=== PATIENT | female | born 1970 | race Caucasian/White ===

== ENCOUNTER 2019-09-02 15:32 | Emergency (ER) | payer OTHER ==
[~2019-09-02] VITALS: Ht 154.9 cm; Wt 73.9 kg
[~2019-09-02 15:32] MED LIST: DOXYCYCLINE HY100 MG PO
[2019-09-02] MEDS ORDERED: KETOROLAC TROMETHAMINE 60 MG/2 ML VIAL ONE (16:28)
[2019-09-02] MEDS ORDERED: KETOROLAC TROMETHAMINE 60 MG/2 ML VIAL IM ONE (16:45)
--- NOTE | 2019-09-02 17:09 | Diagnostic Imaging Report ---
EXAMINATION: SHOULDER LEFT COMPLETE INDICATION: Trauma COMPARISON: None FINDINGS: Internal and external rotation images of the left shoulder demonstrate no acute fracture or dislocation. Alignment is anatomic. Soft tissues appear unremarkable. Partially visualized left lung appears clear. IMPRESSION: No acute osseous injury of the left shoulder. Signed by: Cherelle Wilkinson MD on 09/02/2019 5:06 PM
--- NOTE | 2019-09-02 17:09 | Diagnostic Imaging Report ---
EXAMINATION: RIBS UNILAT W/CXR INDICATION: Left rib pain COMPARISON: Chest are graft 03/10/2019 FINDINGS: LINES/TUBES:None LUNGS:The lungs are well-inflated. No focal consolidation or pulmonary edema. PLEURA:No pleural effusion or pneumothorax. MEDIASTINUM:The cardiomediastinal silhouette appears normal in size and shape. BONES/SOFT TISSUES:No displaced rib fracture. ABDOMEN:Status post cholecystectomy. IMPRESSION: No displaced rib fracture. No focal pneumonia or pulmonary edema. Signed by: Cherelle Wilkinson MD on 09/02/2019 5:05 PM
--- NOTE | 2019-09-02 18:06 | Emergency Department Note ---
History of Present Illnes History of Present Illness Chief Complaint: Extremity Trauma/Pain History of Present Illness This is a 49 year old female TRIP AND FALL HIT HEAD AND LEFT RIBS AND SHOULDER. +RADIAL PULSE. AAOX4. AMBUALTORY. No LOC. Historian: Patient Arrival Mode: Car Chief Controller Center Required: No Onset (how long ago): minute(s) Location: left shoulder and ribs Quality: pain Radiation: Reports non-radiation Severity: moderate Onset quality: sudden Timing of current episode: constant Progression: unchanged Chronicity: new Context: Denies recent illness Relieving factors: none Exacerbating factors: none Associated symptoms: Reports denies other symptoms Treatments prior to arrival: none Past Medical/Family History Physician Review I have reviewed the patient's past medical and family history. Any updates have been documented here. Past Medical History Recent Fever: No Clinical Suspicion of Infectio: No New/Unexplained Change in Ment: No Past Medical History: None Past Surgical History: Cholecysctectomy, Knee Replacement Other Surgery: LUMPECTOMY ARMPIT BILATERAL Social History Smoking Cessation: Never Smoker Counseling Performed: No Alcohol Use: None Any Illegal Drug Use: No TB Exposure/Symptoms: No Physically hurt or threatened: No Family History Family history of heart diseas: No Other Last Tetanus: UNK Review of Systems Review of Systems Constitutional: Reports no symptoms EENTM: Reports no symptoms Cardiovascular: Reports no symptoms Respiratory: Reports no symptoms Gastrointestinal: Reports no symptoms Genitourinary: Reports no symptoms Musculoskeletal: Reports as per HPI Integumentary: Reports no symptoms Neurological: Reports no symptoms Psychological: Reports no symptoms Endocrine: Reports no symptoms Hematological/Lymphatic: Reports no symptoms Physical Exam Related Data Allergies: Coded Allergies: No Known Allergies (Unverified , 03/10/19) Triage Vital Signs Vital Signs Date Time Temp Pulse Resp B/P (MAP) Pulse Ox O2 Delivery O2 Flow Rate FiO2 09/02/19 16:16 98.2 90 18 146/98 98 Room Air Vital signs reviewed: Yes Physical Exam CONSTITUTIONAL Constitutional: Present well-developed, Present well-nourished HENT HENT: Present normocephalic, Present atraumatic, Present oropharynx c lear/moist, Present nose normal HENT L/R: Present left ext ear normal, Present right ext ear normal EYES Eyes: Reports PERRL, Reports conjunctivae normal NECK Neck: Present ROM normal PULMONARY Pulmonary: Present effort normal, Present breath sounds normal CARDIOVASCULAR Cardiovascular: Present regular rhythm, Present heart sounds normal, Present capillary refill normal, Present normal rate GASTROINTESTINAL Abdominal: Present soft, Present nontender, Present bowel sounds normal GENITOURINARY Genitourinary: Present exam deferred SKIN Skin: Present warm, Present dry MUSCULOSKELETAL Musculoskeletal: Present other (mild tenderness anterior left shoulder but good ROM, tenderness over left uppper anterolateral ribs) NEUROLOGICAL Neurological: Present alert, Present oriented x 3, Present no gross motor or sensory deficits PSYCHOLOGICAL Psychological: Present mood/affect normal, Present judgement normal Results Imaging Imaging results reviewed: Yes Impressions EXAMINATION: SHOULDER LEFT COMPLETE INDICATION: Trauma COMPARISON: None FINDINGS: Internal and external rotation images of the left shoulder demonstrate no acute fracture or dislocation. Alignment is anatomic. Soft tissues appear unremarkable. Partially visualized left lung appears clear. IMPRESSION: No acute osseous injury of the left shoulder. Signed by: Cherelle Wilkinson MD on 09/02/2019 5:06 PM EXAMINATION: RIBS UNILAT W/CXR INDICATION: Left rib pain COMPARISON: Chest are graft 03/10/2019 FINDINGS: LINES/TUBES:None LUNGS:The lungs are well-inflated. No focal consolidation or pulmonary edema. PLEURA:No pleural effusion or pneumothorax. MEDIASTINUM:The cardiomediastinal silhouette appears normal in size and shape. BONES/SOFT TISSUES:No displaced rib fracture. ABDOMEN:Status post cholecystectomy. IMPRESSION: No displaced rib fracture. No focal pneumonia or pulmonary edema. Signed by: Cherelle Wilkinson MD on 09/02/2019 5:05 PM Assessment & Plan Medical Decision Making MDM left shoulder and rib pain s/p ground-level fall - check xrays r/o fx Reassessment Reassessment xrays neg - DC home Assessment & Plan Final Impression: (1) Shoulder contusion (2) Contusion of ribs Depart Disposition: HOME, SELF-CARE Last Vital Signs Date Time Temp Pulse Resp B/P (MAP) Pulse Ox O2 Delivery O2 Flow Rate FiO2 09/02/19 16:16 98.2 90 18 146/98 98 Room Air Home Meds Active Scripts Doxycycline Hyclate (DOXYCYCLINE HYCLATE) 100 Mg Capsule, 100 MG PO BID, #12 Prov:NEFTALY RODRIGUEZ NP 03/12/19 Medications in the ED Ketorolac Tromethamine 60 mg STK-MED ONCE .ROUTE ; Start 09/02/19 at 16:28; Stop 09/02/19 at 16:23; Status DC Ketorolac Tromethamine 60 mg ONCE ONCE IM ; Start 09/02/19 at 16:45; Stop 09/02/19 at 16:46; Status DC BERTHA SANCHEZ MD Sep 02, 2019 18:06
== END 2019-09-02 18:07 | disposition home or self-care (01) ==
LOC: ER 16:16
DX: S00.83XA Contusion of other part of head, initial encounter (principal); S40.012A Contusion of left shoulder, initial encounter; S20.212A Contusion of left front wall of thorax, initial encounter; W01.0XXA Fall on same level from slipping, tripping and stumbling without subsequent striking against object, initial encounter
CPT/HCPCS: 71101; 73030; 99283; J1885

== ENCOUNTER 2019-10-13 12:32 | Emergency (ER) | payer OTHER ==
[~2019-10-13] VITALS: Ht 154.9 cm; Wt 73.9 kg
[2019-10-13] MEDS ORDERED: KETOROLAC TROMETHAMINE 30 MG/ML VIAL IM STA (13:13)
--- OUTSIDE RECORDS SUMMARY | 2019-10-13 13:33 | XMS REPORT | Clinical Summary ---
Author Author [facility] Organization [facility] Address Unknown Phone Unavailable Care Team Providers Care Scheduling Clerk Name Role Phone Georgia Monzon MD PCP Unavailable Allergies No Known Allergies Medications End Date Status Medication Sig Dispensed Refills Start Date Active codeine-guaifenesin Take 5 mLs by 0 (GUAIFENESIN AC) 10-100 mouth 3 mg/5 mL liquid (three) times daily as needed for Cough. Active etodolac (LODINE) 400 MG Take 400 mg 0 tablet by mouth 2 (two) times daily. Active fluticasone (FLONASE) 50 1 spray by 0 mcg/actuation nasal spray Nasal route daily. Active fexofenadine-pseudoephedr Take 1 tablet 0 ine (KANE-D 24) by mouth 180-240 mg per 24 hr daily. tablet Active predniSONE (DELTASONE) 20 Take 2 pills 7 tablet 0 /13/201 MG tablet daily for 2 8 days, then 1 pill daily for 2d, then one half pill daily for 2d, then stop. Active predniSONE (DELTASONE) 20 Take 2 pills 7 tablet 0 /13/201 MG tablet daily for 2d, 8 then 1 pill daily for 2d, then one half pill daily for 2d, then stop. Active Problems Problem Noted Date Acute sphenoidal sinusitis 03/16/2017 Family History Medical History Relation Name Comments Heart disease Brother Stroke Brother Relation Name Status Comments Brother Brother Social History Date Tobacco Use Types Packs/Day Years Used Never Smoker Smokeless Tobacco: Never Used Alcohol Use Drinks/Week oz/Week Comments Yes occasional drinking Sex Assigned at Date Recorded Not on file Industry Job Start Date Occupation Not on file Not on file Not on file Travel End Travel History Travel Start No recent travel history available. Last Filed Vital Signs Not on file Plan of Treatment Not on file Results Not on fileafter 10/12/2018 Insurance Payer Benefit Subscriber ID Type Phone Address Plan / Group [employer] - [employer] C[employer] [facility] xxxxxxxxxxx HMO/POS NETWORK [phone] Advance Directives For more information, please contact: [facility] [address] [place] [id number] Date Inactivated Comments Code Status Date Activated 03/16/2017 11:11 PM Full Code 03/15/2017 12:12 PM This code status was determined by: Patient
--- OUTSIDE RECORDS SUMMARY | 2019-10-13 13:33 | XMS REPORT | Continuity of Care Document ---
Author Author [facility] t Organization [facility] Address [address] [place] [address] Phone Unavailable Care Team Providers Care Fingernail Former Name Role Phone NONSTAFF PCP Unavailable SWEET, A LAIRD Attphys Unavailable BENAVIDEZ, A YICHING Attphys Unavailable SAIKIN, MAGDIEL TAHMINA Attphys Unavailable BENAVIDEZ, A YICHING Admphys Unavailable SAIKIN, MAGDIEL TAHMINA Admphys Unavailable Payers Payer Name Policy Type Policy Number Effective Date Expiration Date Armando batres [facility] [id number] 2010 00:00:00 [facility] [id number] 2010 00:00:00 [facility] Problems Condition Name Condition Details Condition Category Status Onset Date Resolution Date Last Treatment Date Treating Clinician Comments Source Acute sphenoidal sinusitis Acute sphenoidal sinusitis Disease Active 2017-03-16 00:00:00 [facility] Chest pain of uncertain etiology Chest pain of uncertain etiolog y Problem Active [facility] Contusion of shoulder Problem Active [facility] Contusion of rib Problem Active [facility] Allergies, Adverse Reactions, Alerts This patient has no known allergies or adverse reactions. Family History Family Member Diagnosis Comments Start Date Stop Date Source Natural brother Heart disease [facility] Natural brother Stroke [facility] Social History Social Habit Start Date Stop Date Quantity Comments Source Sex Assigned At [facility] Alcohol Comment 2017-03-15 00:00:00 2017-03-15 00:00:[address]an [facility] Smoking Status Start Date Stop Date Source Never smoker [facility] Medications Ordered Medication Name Filled Medication Name Start Date Stop Da te Current Medication? Ordering Clinician Indication Dosage Frequency Signature (SIG) Comments Components Source Doxycycline Hyclate Doxycycline Hyclate 2019-03-12 13:40:00 Yes 100 Twice A Day [facility] codeine-guaifenesin (GUAIFENESIN AC) 10-100 mg/5 mL liquid 2017-03-16 04:32:44 Yes 5mL Take 5 mLs by mouth 3 (t hree) times daily as needed for [facility]ough. [facility] etodolac (LODINE) 400 MG tablet 2017-03-16 04:32:44 Yes 400mg Q.5D Take 400 mg by mouth 2 (two) times daily. [facility] fluticasone (FLONASE) 50 mcg/actuation nasal spray 2017-03 04:32:44 Yes 1{spray} QD 1 spray by Nasal route daily. [facility] fexofenadine-pseudoephedrine (KANE-D 24) 180-240 mg per 2 4 hr tablet 2017-03-16 04:32:44 Yes 1{tbl} QD Take 1 tablet by m out daily. [facility] predniSONE (DELTASONE) 20 MG tablet 2017-03-16 00:00:00 Yes Take 2 pills daily for 2 days, then 1 pill daily for 2d, then one half pill daily for 2d, then stop. [facility] predniSONE (DELTASONE) 20 MG tablet 2017-03-16 00:00:00 Yes Take 2 pills daily for 2d, then 1 pill daily for 2d, then one half pill daily for 2d, then stop. [facility] Vital Signs Vital Name Observation Time Observation Value Comments Source Weight 2019-09-02 16:16:00 163 [lb_av] [facility] BMI (Body Mass Index) 2019-09-02 16:16:00 30.8 kg/m2 [facility] Body Temperature 2019-03-12 11:56:00 97.0 [degF] [facility] Procedures Procedure Date / Time Performed Performing Clinician Sourc e X-ray of chest, two views 2019-03-12 00:00:00 MICHAEL NEFTALY [facility] Plan of Care Planned Activity Planned Date Details Comments Source Instructions Contusion [facility] Instructions Sprains [facility] Encounters Start Date/Time End Date/Time [facility] ID Source 2019-09-02 16:16:00 2019-09-02 18:07:00 Departed Emergency Room 1 BERTHA SANCHEZ [facility] [id number] [facility] 2019-03-10 18:29:00 2019-03-12 15:20:00 Discharged Inpatient (obs) 1 ALAINA BENAVIDEZ [facility] [id number] [facility] Results Test Description Test Time Test Comments Results Result Comments Source SHOULDER LEFT COMPLETE 2019-09-02 17:05:00 [facility] [address] [place] [address] Patient Name: TAM DAVID MR #: [id number] : 1970 Age/Sex: 49/F Req #: [id number] Adm Physician: Ordered by: BERTHA SANCHEZ MD Report #: [id number] Location: ER Room/Bed: Procedure: [id number] DX/SHOULDER LEFT COMPLETE Exam Date: 09/02/19 Exam Time: 1630 REPORT STATUS: Signed EXAMINATION: SHOULDER LEFT COMPLETE INDICATION: Trauma COMPARISON: None FINDINGS: Internal and external rotation images of the left shoulder demonstrate no acute fracture or dislocation. Alignment is anatomic. Soft tissues appear unremarkable. Partially visualized left lung appears clear. IMPRESSION: No acute osseous injury of the left shoulder. Signed by: Juan Luis Soares MD on 09/02/2019 5:06 PM Dictated By: JUAN LUIS SOARES MD 05 Transcribed By: BILLIE on 09/02/191705 COPY TO: BERTHA SANCHEZ MD RIBS UNILAT W/CXR 2019-09-02 17:04:00 [place] [address] Patient Name: TAM DAVID MR #: [id number] : 1970 Age/Sex: 49/F Req #: [id number] Adm Physician: Ordered by: BERTHA SANCHEZ MD Report #: [id number] Location: ER Room/Bed: Procedure: [id number] DX/RIBS UNILAT W/CXR Exam Date: 09/02/19 Exam Time: 1630 REPORT STATUS: Signed EXAMINATION: RIBS UNILAT W/CXR INDICATION: Left rib pain COMPARISON: Chest are graft 03/10/2019 FINDINGS: LINES/TUBES:None LUNGS:The lungs are well-inflated. No focal consolidation or pulmonary edema. PLEURA:No pleural effusion or pneum othorax. MEDIASTINUM:The cardiomediastinal silhouette appears normal in size and shape. BONES/SOFT TISSUES:No displaced rib fracture. ABDOMEN:Status post cholecystectomy. IMPRESSION: No displaced rib fracture. No focal pneumonia or pulmonary edema. Signed by: Juan Luis Soares MD on 09/02/2019 5:05 PM Dictated By: JUAN LUIS SOARES MD 04 Transcribed By: BILLIE on 09/02/191704 COPY TO: BERTHA SANCHEZ MD CHEST 2 VIEWS 2019-03-12 06:44:00 [facility] [address] [address] Patient Name: TAM DAVID MR #: [id number] : 1970 Age/Sex: 48/F Req #: [id number] Adm Physician: ALAINA BENAVIDEZ MD Ordered by: NEFTALY RODRIGUEZ DOMESTIC HELPER Report #: [id number] Location: MED/SURG Room/Bed: [facility] Procedure: [id number] DX/CHEST 2 VIEWS Exam Date: 03/12/19 Exam Time: 619 REPORT STATUS: Signed EXAMINATION: PA and lateral views of the chest. COMPARISON: 03/11/2019 CLINICAL HISTORY: Follow-up chest x-ray DISCUSSION: Lungs are well-inflated. Previously described hazy right upper lobe opacity is less conspicuous on the current study. Mild prominence of the perihilar interstitium compatible with edema. No consolidation or effusion. Stable cardiomediastinal contour. No acute osseous abnormality. IMPRESSION: Persistent pulmonary venous congestion. Focal right upper lobe opacity described on the comparison study is less conspicuous on the current radiograph. Signed by: Dr. Windy Whipple M.D. on 03/12/2019 6:46 AM Dictated By: WINDY WHIPPLE MD 5 Transcribed By: BILLIE on 03/12/19645 COPY TO: NEFTALY RODRIGUEZ DOMESTIC HELPER White Blood Count 2019-03-12 05:59:00 Test Item White Blood Count (test code = 6690-2) 5.45 4.8-10.8 [facility] Rxtfa8221-45-27 05:59:00* Test Item Value Reference Range Interpretation Comments Red Blood Count (test code = 789-8) 4.66 3.6-5.1 [facility]emoglobin2020-01-09 05:59:00* Test Item Value Reference Range Interpretation Comments Hemoglobin (test code = 11075-2) 13.3 12.0-16.0 [facility]Hematocrit2020-01-09 05:59:00* Test Item Value Reference Range Interpretation Comments Hematocrit (test code = 4544-3) 39.5 34.2-44.1 [facility] AllenMean Corpuscular Oczewf3988-77-92 05:59:00* Test Item Value Reference Range Interpretation Comments Mean Corpuscular Volume (test code = 787-2) 84.8 81-99 [facility]Mean Corpuscular Ibmasklelx6471-82-60 05:59:00* Test Item Value Reference Range Interpretation Comments Mean Corpuscular Hemoglobin (test code = 785-6) 28.5 28-32 [facility]Mean Corpuscular Hemoglobin Concent 2019-03-12 05:59:00* Test Item Value Reference Range Interpretation Comments Mean Corpuscular Hemoglobin Concent (test code = 786-4) 33.7 31-35 [facility]Red Cell Distribution Ormnl8650-19-88 05:59:00* Test Item Value Reference Range Interpretation Comments Red Cell Distribution Width (test code = 04754-5) 12.8 11.7 -14.4 [facility] AllenPlatelet Ayxvn4726-98-53 05:59:00* Test Item Value Reference Range Interpretation Comments Platelet Count (test code = 777-3) 295 140-360 [facility]Neutrophils (%) (Auto)2019-03-12 05:59:00 * Test Item Value Reference Range Interpretation Comments Neutrophils (%) (Auto) (test code = 00583-2) 48.7 38.7-80.0 [facility]Lymphocytes (%) (Auto)2019-03-12 05:59:00 * Test Item Value Reference Range Interpretation Comments Lymphocytes (%) (Auto) (test code = 736-9) 39.1 18.0-39.1 [facility]Monocytes (%) (Auto)2019-03-12 05:59:00* Test Item Value Reference Range Interpretation Comments Monocytes (%) (Auto) (test code = 5905-5) 9.5 4.4-11.3 [facility]Eosinophils (%) (Auto)2019-03-12 05:59:00 * Test Item Value Reference Range Interpretation Comments Eosinophils (%) (Auto) (test code = 713-8) 1.8 0.0-6.0 [facility]Basophils (%) (Auto)2019-03-12 05:59:00* Test Item Value Reference Range Interpretation Comments Basophils (%) (Auto) (test code = 706-2) 0.7 0.0-1.0 [facility] AllenIM GRANULOCYTES %2019-03-12 05:59:00* Test Item Value Reference Range Interpretation Comments IM GRANULOCYTES % (test code = IM GRANULOCYTES %) 0.2 0.0- 1.0 [facility]Neutrophils # (Auto)2019-03-12 05:59:00* Test Item Value Reference Range Interpretation Comments Neutrophils # (Auto) (test code = 751-8) 2.7 2.1-6.9 [facility]Lymphocytes # (Auto)2019-03-12 05:59:00* Test Item Value Reference Range Interpretation Comments Lymphocytes # (Auto) (test code = 19020-5) 2.1 1.0-3.2 [facility]Monocytes # (Auto)2019-03-12 05:59:00* Test Item Value Reference Range Interpretation Comments Monocytes # (Auto) (test code = 742-7) 0.5 0.2-0.8 [facility]Eosinophils # (Auto)2019-03-12 05:59:00* Test Item Value Reference Range Interpretation Comments Eosinophils # (Auto) (test code = 711-2) 0.1 0.0-0.4 [facility]Basophils # (Auto)2019-03-12 05:59:00* Test Item Value Reference Range Interpretation Comments Basophils # (Auto) (test code = 704-7) 0.0 0.0-0.1 [facility] AllenAbsolute Immature Granulocyte (auto 2019-03-12 05:59:00* Test Item Value Reference Range Interpretation Comments Absolute Immature Granulocyte (auto (augustina t code = Absolute Immature Granulocyte (auto) 0.01 0-0.1 [facility] AllenBlood leukocytes automated count (number/volume)2019-03-12 04:51:00* Test Item Value Reference Range Interpretation Comments White Blood Count (test code = 6690-2) 5.45 4.8-10.8 [facility] erythrocytes automated count (number/volume)2019-03-12 04:51:00* Test Item Value Reference Range Interpretation Comments Red Blood Count (test code = 789-8) 4.66 3.6-5.1 [facility] AllenBlood hemoglobin measurement (moles/volume)2019-03-12 04:51:00* Test Item Value Reference Range Interpretation Comments Hemoglobin (test code = 38804-8) 13.3 12.0-16.0 [facility] AllenAutomated blood hematocrit (volume fraction)2019-03-12 04:51:00* Test Item Value Reference Range Interpretation Comments Hematocrit (test code = 4544-3) 39.5 34.2-44.1 [facility] AllenAutomated erythrocyte mean corpuscular jmakza8189-92-65 04:51:00* Test Item Value Reference Range Interpretation Comments Mean Corpuscular Volume (test code = 787-2) 84.8 81-99 [facility] AllenAutomated erythrocyte mean corpuscular hemoglobin (mass per erythrocyte)2019-03-12 04:51:00* Test Item Value Reference Range Interpretation Comments Mean Corpuscular Hemoglobin (test code = 785-6) 28.5 28-[address] [facility] mean corpuscular hemoglobin concentration measurement (mass/volume)2019-03-12 04:51:00* Test Item Value Reference Range Interpretation Comments Mean Corpuscular Hemoglobin Concent (test code = 786-4) 33.7 31-35 [facility] AllenRDW DyiGb-Whi4385-48-09 04:51:00* Test Item Value Reference Range Interpretation Comments Red Cell Distribution Width (test code = 23299-5) 12.8 11.7 -14.4 [facility] AllenAutomated blood platelet count (count/volume)2019-03-12 04:51:00* Test Item Value Reference Range Interpretation Comments Platelet Count (test code = 777-3) 295 140-360 [facility] AllenAutomated blood segmented neutrophil count as percentage of total cembvxnrdp6544-77-34 04:51:00* Test Item Value Reference Range Interpretation Comments Neutrophils (%) (Auto) (test code = 68966-3) 48.7 38.7-80.0 [facility] AllenAutomated blood lymphocyte count as percentage ot total yuafzeejgw9554-47-86 04:51:00* Test Item Value Reference Range Interpretation Comments Lymphocytes (%) (Auto) (test code = 736-9) 39.1 18.0-39.1 [facility] AllenAutomated blood monocyte count as percentage of total vwxiyuqnrm7107-58-27 04:51:00* Test Item Value Reference Range Interpretation Comments Monocytes (%) (Auto) (test code = 5905-5) 9.5 4.4-11.3 [facility] AllenAutomated blood eosinophil count as percentage of total urdkxrukyp1928-92-13 04:51:00* Test Item Value Reference Range Interpretation Comments Eosinophils (%) (Auto) (test code = 713-8) 1.8 0.0-6.0 [facility] AllenAutomated blood basophil count as percentage of total kdohrdokxf0834-99-95 04:51:00* Test Item Value Reference Range Interpretation Comments Basophils (%) (Auto) (test code = 706-2) 0.7 0.0-1.0 [facility] AllenFluoroscopic procedure less than one hour dvezehgp7773-10-85 04:51:00* Test Item Value Reference Range Interpretation Comments IM GRANULOCYTES % (test code = IM GRANULOCYTES %) 0.2 0.0- 1.0 [facility] AllenAutomated blood neutrophil count 2019-03-12 04:51:00* Test Item Value Reference Range Interpretation Comments Neutrophils # (Auto) (test code = 751-8) 2.7 2.1-6.9 [facility] AllenBlood lymphocytes count (number/volume) 2019-03-12 04:51:00* Test Item Value Reference Range Interpretation Comments Lymphocytes # (Auto) (test code = 42641-0) 2.1 1.0-3.2 [facility]Blwor[facility] monocytes automated count (number/volume)2019-03-12 04:51:00* Test Item Value Reference Range Interpretation Comments Monocytes # (Auto) (test code = 742-7) 0.5 0.2-0.8 [facility] AllenAutomated blood eosinophil count 2019-03-12 04:51:00* Test Item Value Reference Range Interpretation Comments Eosinophils # (Auto) (test code = 711-2) 0.1 0.0-0.4 [facility] AllenAutomated blood basophil count (count/volume)2019-03-12 04:51:00* Test Item Value Reference Range Interpretation Comments Basophils # (Auto) (test code = 704-7) 0.0 0.0-0.1 [facility] AllenFluoroscopic procedure less than one hour tqvdegar9322-02-81 04:51:00* Test Item Value Reference Range Interpretation Comments Absolute Immature Granulocyte (auto (augustina t code = Absolute Immature Granulocyte (auto) 0.01 0-0.1 [facility] AllenCreatine Kinase ZY4968-03-29 21:42:00* Test Item Value Reference Range Interpretation Comments Creatine Kinase MB (test code = 66352-6) 0.50 0-5.0 [facility] AllenTroponin M8205-25-30 21:42:00* Test Item Value Reference Range Interpretation Comments Troponin I (test code = ACV6944) < 0.001 0-0.300 [facility] AllenCreatine Rehqfc0965-75-16 21:33:00* Test Item Value Reference Range Interpretation Comments Creatine Kinase (test code = 2157-6) 56 29-168 [facility] creatine kinase measurement (enzymatic activity/volume)2019-03-11 20:10:00* Test Item Value Reference Range Interpretation Comments Creatine Kinase (test code = 2157-6) 56 29-168 [facility] Hospital[facility] or plasma creatine kinase MB measurement (mass/volume)2019-03-11 20:10:00* Test Item Value Reference Range Interpretation Comments Creatine Kinase MB (test code = 05075-2) 0.50 0-5.0 [facility] AllenTroponin I measurement by highly sensitive enzyme epnbmcmvyii4091-91-97 20:10:00* Test Item Value Reference Range Interpretation Comments Troponin I (test code = 67986-7) < 0.001 0-0.300 [facility] HospitalHOULDER LEFT TNYUBVTX9455-28-70 17:19:00 [facility] [address] [place] [address] Patient Name: TAM DAVID MR #: [id number] : 1970 Age/Sex: 48/F Req #: [id number] Adm Physician: ALAINA BENAVIDEZ MD Ordered by: NEFTALY RODRIGUEZ DOMESTIC HELPER Report #: [id number] Location: MED/SURG Room/Bed: [facility] Procedure: [id number] DX/S GABRIEL LEFT COMPLETE Exam Date: 03/11/19 Exam Time: 1640 REPORT STATUS: Signed SHOU LDER LEFT COMPLETE - 2 views HISTORY: Pain COMPARISON: None available. FINDINGS: Bones: No acute displaced fracture. Osseous alignment is within normal limits. Joints: No malalignment. Soft tissues: T he soft tissues appear unremarkable. IMPRESSION: No acute radiographi c abnormality. Signed by: Dr. Ganga Rangel MD on 03/11/2019 5:20 PM Dictated By: GANGA RANGEL MD 19 COPY TO: Natalie RODRIGUEZ DOMESTIC HELPER CHEST SINGLE (PORTABLE)2019-03-11 17:16:00 [place] [address] Patient Name: TAM DAVID MR #: [id number] : 1970 Age/Sex: 48/F Req #: [id number] Adm Physician: ALAINA BENAVIDEZ MD Ordered by: NEFTALY RODRIGUEZ DOMESTIC HELPER Report #: [id number] Location: MED/SURG Room/Bed: [facility] Procedure: [id number] DX/C HEST SINGLE (PORTABLE) Exam Date: 03/11/19 Exam Time : 1645 REPORT STATUS: Signed EXA MINATION: CHEST SINGLE (PORTABLE) INDICATION: edema? COM PARISON: None FINDINGS: AP view TUBES and LINES: None. LUNGS: Lungs are well inflated. Mild central vascular congestion and inters titial edema. Mildly increased right upper lobe focal hazy opacification PL EURA: No pleural effusion or pneumothorax. HEART AND MEDIASTINUM: The car diomediastinal silhouette is unremarkable. BONES AND SOFT TISSUES: No acute osseous lesion. Soft tissues are unremarkable. UPPER ABDOMEN: No f ree air under the diaphragm. IMPRESSION: Mild central vascular conge stion and interstitial edema. Mildly increased right upper lobe focal hazy opa cification, could represent subsegmental atelectasis or developing pneumonia i n the appropriate clinical context. Signed by: Dr. Ganga Rangel MD on 5:17 PM Dictated By: GANGA RANGEL MD 16 Transcribed By: BILLIE on 03/11/191716 COPY TO: NEFTALY RODRIGUEZ NP B-Type Natriuretic Eiocnbm6330-40-82 16:13:00* Test Item Value Reference Range Interpretation Comments B-Type Natriuretic Peptide (test code = 60252-7) 17.4 0-100 [facility]Triglycerides Hukhw5030-66-01 07:52:00* Test Item Value Reference Range Interpretation Comments Triglycerides Level (test code = 2571-8) 77 0-149 [facility] AllenCholesterol Ewlqw6013-08-24 07:52:00* Test Item Value Reference Range Interpretation Comments Cholesterol Level (test code = 2093-3) 176 0-199 Less than 200 mg/dL Low Jzlx616 - 239 mg/dL Borderline Tqhj938 m g/dl and greater High Risk [facility] AllenLDL Icbdizrkizi3107-35-87 07:52:00* Test Item Value Reference Range Interpretation Comments LDL Cholesterol (test code = 2089-1) 121 60-130 [facility] AllenHDL Nzcfslgxvkz8056-53-06 07:52:00* Test Item Value Reference Range Interpretation Comments HDL Cholesterol (test code = 2085-9) 40 40-60 [facility] AllenCholesterol/HDL Vbhpw3320-12-02 07:52:00 * Test Item Value Reference Range Interpretation Comments Cholesterol/HDL Ratio (test code = 9830-1) 4.4 3.0-3.6 H [facility] or plasma triglyceride measurement (mass/volume)2019-03-11 04:50:00* Test Item Value Reference Range Interpretation Comments Triglycerides Level (test code = 2571-8) 77 0-149 [facility] Hospitalerum or plasma cholesterol measurement (mass/volume)2019-03-11 04:50:00* Test Item Value Reference Range Interpretation Comments Cholesterol Level (test code = 2093-3) 176 0-199 Less than 200 mg/dL Low Plmw246 - 239 mg/dL Borderline Zqhy056 m g/dl and greater High Risk [facility] or plasma cholesterol in LDL measurement (mass/volume) 2019-03-11 04:50:00* Test Item Value Reference Range Interpretation Comments LDL Cholesterol (test code = 2089-1) 121 60-130 [facility]er[facility] or plasma cholesterol in HDL measurement (mass/volume)2019-03-11 04:50:00* Test Item Value Reference Range Interpretation Comments HDL Cholesterol (test code = 2085-9) 40 40-60 [facility] Hospitalerum or plasma total cholesterol/cholesterol in HDL mass wejqi3198-38-84 04:50:00* Test Item Value Reference Range Interpretation Comments Cholesterol/HDL Ratio (test code = 9830-1) 4.4 3.0-3.6 [facility] AllenBNP Iyj-eSkm9030-36-08 04:25:00* Test Item Value Reference Range Interpretation Comments B-Type Natriuretic Peptide (test code = 24184-1) 17.4 0-100 [facility] AllenCXR 2 VIEW - XGUT4565-86-63 19:46:00 [facility] [address] [place] [address] Patient Name: TAM DAVID MR #: [id number] : 1970 Age/Sex: 48/F Req #: [id number] Adm Physician: Ordered by: SHADY PETTY MD Report #: [id number] Location: [facility] Room/Bed: Procedure: [id number] HOPD /CXR 2 VIEW - HOPD Exam Date: 03/10/19 Exam Time: REPORT STATUS: Signed EXAMINA TION: CXR 2 VIEW - HOPD INDICATION: [id number] COM PARISON: None FINDINGS: PA and lateral views TUBES and LINES: None. Multiple external leads overlie the patient. LUNGS: Lungs are well i nflated. Mild central vascular congestion and interstitial edema. PLEURA : No pleural effusion or pneumothorax. HEART AND MEDIASTINUM: The cardiom ediastinal silhouette is unremarkable. BONES AND SOFT TISSUES: No acut e osseous lesion. Soft tissues are unremarkable. UPPER ABDOMEN: No free air under the diaphragm. IMPRESSION: Mild central vascular congestio n and interstitial edema. Signed by: Dr. Ganga Rangel MD on 2019 7:48 PM Dictated By: GANGA RANGEL MD 47 Transcribed By: BILLIE on 03/10/191947 C OPY TO: SHADY PETTY MD TROPONIN [id number] 13:50:00* Test Item Value Reference Range Interpretation Comments TROPONIN I (BEAKER) (test code = 397) 0.01 ng/mL 0.00-0.03 Troponin I (TnI) levels must be interpreted in the context of the presenting sym ptoms and the clinical findings. Elevated TnI levels indicate myocardial damage, but are not specific for ischemic heart disease. Elevated TnI levels are seen i n patients with other cardiac conditions (including myocarditis and congestive h eart failure), and slight TnI elevations occur in patients with other conditions , including sepsis, renal failure, acidosis, acute neurological disease, and per sistent tachyarrhythmia.CBC W/PLT COUNT & AUTO MPSOFKTSXOCE1407-60-13 06:15:00* Test Item Value Reference Range Interpretation Comments WHITE BLOOD CELL COUNT (BEAKER) (test code = 775) 3.2 K/ L 3.5- 10.5 L RED BLOOD CELL COUNT (BEAKER) (test code = 761) 4.47 M/ L 3.93-5 .22 HEMOGLOBIN (BEAKER) (test code = 410) 12.6 GM/DL 11.2-15.7 HEMATOCRIT (BEAKER) (test code = 411) 38.7 % 34.1-44.9 MEAN CORPUSCULAR VOLUME (BEAKER) (test code = 753) 86.6 fL 79. 4-94.8 MEAN CORPUSCULAR HEMOGLOBIN (BEAKER) (test code = 751) 28.2 pg 25.6-32.2 MEAN CORPUSCULAR HEMOGLOBIN CONC (BEAKER) (test code = 752) 32.6 GM/DL 32.2-35.5 RED CELL DISTRIBUTION WIDTH (BEAKER) (test code = 412) 13.4 % 11.7-14.4 PLATELET COUNT (BEAKER) (test code = 756) 289 K/CU MM 150-450 MEAN PLATELET VOLUME (BEAKER) (test code = 754) 9.9 fL 9.4-12 .3 NUCLEATED RED BLOOD CELLS (BEAKER) (test code = 413) 0 /100 WBC 0 -0 NEUTROPHILS RELATIVE PERCENT (BEAKER) (test code = 429) 37 % LYMPHOCYTES RELATIVE PERCENT (BEAKER) (test code = 430) 39 % MONOCYTES RELATIVE PERCENT (BEAKER) (test code = 431) 21 % EOSINOPHILS RELATIVE PERCENT (BEAKER) (test code = 432) 2 % BASOPHILS RELATIVE PERCENT (BEAKER) (test code = 437) 1 % NEUTROPHILS ABSOLUTE COUNT (BEAKER) (test code = 670) 1.18 K/ L 1.56-6.13 L LYMPHOCYTES ABSOLUTE COUNT (BEAKER) (test code = 414) 1.26 K/ L 1.18-3.74 MONOCYTES ABSOLUTE COUNT (BEAKER) (test code = 415) 0.67 K/ L 0. 24-0.36 H EOSINOPHILS ABSOLUTE COUNT (BEAKER) (test code = 416) 0.06 K/ L 0.04-0.36 BASOPHILS ABSOLUTE COUNT (BEAKER) (test code = 417) 0.03 K/ L 0. 01-0.08 IMMATURE GRANULOCYTES-RELATIVE PERCENT (BEAKER) (test code = 2801) 0 % 0-1 TSH/FREE T4 IF [id number] 05:53:00* Test Item Value Reference Range Interpretation Comments THYROID STIMULATING HORMONE (BEAKER) (test code = 772) 0.70 uIU/mL 0.35-4.94 BASIC METABOLIC [id number] 05:45:00* Test Item Value Reference Range Interpretation Comments SODIUM (BEAKER) (test code = 381) 138 meq/L 136-145 POTASSIUM (BEAKER) (test code = 379) 4.0 meq/L 3.5-5.1 CHLORIDE (BEAKER) (test code = 382) 107 meq/L 98-107 CO2 (BEAKER) (test code = 355) 24 meq/L 22-29 BLOOD UREA NITROGEN (BEAKER) (test code = 354) 16 mg/dL 7-21 CREATININE (BEAKER) (test code = 358) 0.71 mg/dL 0.57-1.25 GLUCOSE RANDOM (BEAKER) (test code = 652) 98 mg/dL 70-105 CALCIUM (BEAKER) (test code = 697) 9.2 mg/dL 8.4-10.2 EGFR (BEAKER) (test code = 1092) 88 mL/min/1.73 sq m ESTIMATED GFR IS NOT ACCURATE CREATININE CLEARANCE IN PREDICTING GLOMERULAR FILTRATION RATE. ESTIMATED GFR IS NOT APPLICABLE FOR DIALYSIS PATIENTS. TROPONIN [id number] 05:40:00* Test Item Value Reference Range Interpretation Comments TROPONIN I (BEAKER) (test code = 397) < ng/mL 0.00-0.03 Troponin I (TnI) levels must be interpreted in the context of the presenting sym ptoms and the clinical findings. Elevated TnI levels indicate myocardial damage, but are not specific for ischemic heart disease. Elevated TnI levels are seen i n patients with other cardiac conditions (including myocarditis and congestive h eart failure), and slight TnI elevations occur in patients with other conditions , including sepsis, renal failure, acidosis, acute neurological disease, and per sistent tachyarrhythmia.MR, MRA, BRAIN, WITHOUT [id number] 18:41:00 Reason for exam:->Ischemic Stroke EvaluationFINAL REPORT MRA brain and neck without contrast 03/15/2017 6:33 PM CLINICAL HISTORY: StrokeIschemic Stroke Evaluation COMPARISON: None available TECHNIQUE: Two- and three-dimensional [id number] MRA images of the intra- and extracranial arterial vasculature was performed, from which maximal intensity projection 3-D reconstructions were created. FINDINGS: MRA neck: There is no vessel occlusion or flow-limiting stenosis. There is no NASCET-quantifiable cervical internal carotid artery stenosis. Flow is antegrade in both vertebral arteries. MRA [place]: There is no vessel occlusion, flow-limiting stenosis, or aneurysm. IMPRESSION: Negative intra- and extracranial MRAs. Signed: Elier Gabriel Verified Date/Time: 03/15/2017 18:41:01 Reading Location: [facility] Reading Room , MRA, NECK, WITHOUT IV [id number] 18:41:00Reason for exam:->Ischemic Stroke EvaluationFINAL REPORT MRA brain and neck without contrast 03/15/2017 6:33 PM CLINICAL HISTORY: StrokeIschemic Stroke Evaluation COMPARISON: None available TECHNIQUE: Two- and three-dimensional [id number] MRA images of the intra- and extracranial arterial vasculature was performed, from which maximal intensity projection 3-D reconstructions were created. FINDINGS: MRA neck: There is no vessel occlusion or flow-limiting stenosis. There is no NASCET-quantifiable cervical internal carotid artery stenosis. Flow is antegrade in both vertebral arteries. MRA [place]: There is no vessel occlusion, flow-limiting stenosis, or aneurysm. IMPRESSION: Negative intra- and extracranial MRAs. Signed: Elier Gabriel Verified Date/Time: 03/15/2017 18:41:01 Reading Location: [facility] Reading Room , BRAIN, WITHOUT [id number] 18:32:00 Reason for exam:->Ischemic Stroke EvaluationFINAL REPORT MRI brain without contrast 03/15/2017 6:30 PM CLINICAL INDICATION: StrokeIschemic Stroke Evaluation TECHNIQUE: Multiplanar, multisequence MR imaging of the brain was performed utilizing the following imaging sequences: Axial T1, T2, FLAIR, GRE, and DWI; sagittal and coronal T1-weighted images. COMPARISON: None available FINDINGS: There is no infarct, hematoma, mass, extra-axial collection, or hydrocephalus. Normal appearing flow-voids are present in the major intracranial vascular structures. The sellar and pineal regions are normal. The craniovertebral junction is intact. There is left sphenoid sinusitis. The orbits, remainder of the face face, and skull base are without worrisome finding. IMPRESSION: 1. Left sphenoid sinusitis.2. Otherwise, unremarkable examination. Signed: Elier Gabriel Verified Date/Time: 0 03/15/2017 18:32:54 Reading Location: [facility] Radiology Reading Room Ann ctronically signed by: ELIER GABRIEL M.D. on 03/15/2017 06:32 PM VITAMIN D, [id number] 15:22:00* Test Item Value Reference Range Interpretation Comments VITAMIN D 25-OH (BEAKER) (test code = 2764) 20.3 ng/mL 6.6-49.9 Effective 12/12/2016: Reference Range ChangeNew: 6.6-49.9 ng/mL Previous: 13.0 -47.8 ng/mLRecommended Vitamin D Target Range: 30.0-40.0 ng/mLVITAMIN B12 AND [id number] 15:22:00* Test Item Value Reference Range Interpretation Comments VITAMIN B12 (BEAKER) (test code = 774) 613 pg/mL 213-816 FOLATE (BEAKER) (test code = 362) 15.5 ng/mL >=7.0 CREATINE KINASE (CK), TOTAL AND [id number] 13:50:00* Test Item Value Reference Range Interpretation Comments CREATINE KINASE TOTAL (BEAKER) (test code = 380) 36 U/L 29-20 0 CREATINE KINASE-MB (BEAKER) (test code = 750) 0.4 ng/mL 0.0-6.6 CREATINE KINASE-MB INDEX (BEAKER) (test code = 395) 1.1 % CK-MB Reference Range:<6.7 Normal6.7-10.0 Borderline>10.0 Abnormal RAPID INFLUENZA A&B [id number] 13:44:00* Test Item Value Reference Range Interpretation Comments RAPID INFLUENZA A AG (BEAKER) (test code = 1622) Positive Negative, Inconclusive A RAPID INFLUENZA B AG (BEAKER) (test code = 1623) Negative Negative, Inconclusive BASIC METABOLIC [id number] 13:41:00* Test Item Value Reference Range Interpretation Comments SODIUM (BEAKER) (test code = 381) 139 meq/L 136-145 POTASSIUM (BEAKER) (test code = 379) 3.9 meq/L 3.5-5.1 CHLORIDE (BEAKER) (test code = 382) 104 meq/L 98-107 CO2 (BEAKER) (test code = 355) 26 meq/L 22-29 BLOOD UREA NITROGEN (BEAKER) (test code = 354) 9 mg/dL 7-21 CREATININE (BEAKER) (test code = 358) 0.75 mg/dL 0.57-1.25 GLUCOSE RANDOM (BEAKER) (test code = 652) 82 mg/dL 70-105 CALCIUM (BEAKER) (test code = 697) 9.4 mg/dL 8.4-10.2 EGFR (BEAKER) (test code = 1092) 82 mL/min/1.73 sq m ESTIMATED GFR IS NOT ACCURATE CREATININE CLEARANCE IN PREDICTING GLOMERULAR FILTRATION RATE. ESTIMATED GFR IS NOT APPLICABLE FOR DIALYSIS PATIENTS.
--- NOTE | 2019-10-13 14:28 | Diagnostic Imaging Report ---
EXAM: CT Chest, Abdomen and Pelvis WITHOUT intravenous contrast INDICATION: Rib pain, abdominal pain COMPARISON: Chest are graft 03/12/2019 TECHNIQUE: The chest, abdomen and pelvis were scanned utilizing a multidetector helical scanner from the thoracic inlet to the pubic symphysis without administration of IV contrast. Coronal and sagittal reformations were obtained. IV CONTRAST: None ORAL CONTRAST: Water COMPLICATIONS: None RADIATION DOSE: Total DLP: (DLP x 0.015 x size factor) mGy*cm Dose modulation, iterative reconstruction, and/or weight based adjustment of the mA/kV was utilized to reduce the radiation dose to as low as reasonably achievable. FINDINGS: LINES/ TUBES: None. LUNGS AND AIRWAYS: The central airways are patent. No focal consolidation or pulmonary edema. No suspicious pulmonary nodules. PLEURA: The pleural spaces are clear. HEART AND MEDIASTINUM: Partially visualized thyroid gland appears unremarkable. No mediastinal, hilar or axillary lymphadenopathy. The heart is normal in size.. There is no pericardial effusion. HEPATOBILIARY: No focal liver lesion. Status post cholecystectomy. SPLEEN: No splenomegaly. PANCREAS: No focal masses or ductal dilatation. ADRENALS: No adrenal nodules. KIDNEYS/URETERS: No hydronephrosis, stones, or solid mass lesions. PELVIC ORGANS/BLADDER: Unremarkable. PERITONEUM / RETROPERITONEUM: No free air or fluid. LYMPH NODES: No lymphadenopathy. VESSELS: Unremarkable. GI TRACT: Mild diverticulosis. No CT evidence of diverticulitis. No abnormal bowel thickening. No bowel obstruction. Normal appendix. BONES AND SOFT TISSUES: No acute osseous injury. Specifically, no acute rib fractures. IMPRESSION: No acute findings in the chest, abdomen or pelvis. Mild diverticulosis. No CT evidence of diverticulitis. Signed by: Cherelle Wilkinson MD on 10/13/2019 2:25 PM
--- NOTE | 2019-10-13 14:28 | Emergency Department Note ---
History of Present Illnes History of Present Illness Chief Complaint: Abdominal Complaints History of Present Illness This is a 49 year old female Chief Complaint Comment Patient presents from home with complaints of abdominal pain on the left side under her ribs that has gotten worse over the past 2 weeks. Patient reports that it hurts worse when she moves or takes deep breaths. Patient reports that she feel at work on September 01 and suffered a broken 8th rib on the left. Patient has followed up with Lizette (ortho) and he is concerned that it may be her spleen and wanted the patient to come to the ER for evaluation. Patient rates her pain a 12/11.. Historian: Patient Arrival Mode: Car Counter Stitcher Required: No Onset (how long ago): month(s) (1) Location: [facility] Quality: Sharp Radiation: Reports back Severity: severe Onset quality: gradual Duration (how long): month(s) (1) Timing of current episode: constant Progression: unchanged Chronicity: new Context: Denies recent illness Relieving factors: none Exacerbating factors: none Associated symptoms: Denies denies other symptoms Past Medical/Family History Physician Review I have reviewed the patient's past medical and family history. Any updates have been documented here. Past Medical History Recent Fever: No Clinical Suspicion of Infectio: No New/Unexplained Change in Ment: No Past Medical History: None Past Surgical History: Cholecysctectomy, Knee Replacement Other Surgery: LUMPECTOMY ARMPIT BILATERAL Social History Physically hurt or threatened: No Other Last Tetanus: UNK Review of Systems Review of Systems Constitutional: Reports no symptoms EENTM: Reports no symptoms Cardiovascular: Reports no symptoms Respiratory: Reports no symptoms Gastrointestinal: Reports no symptoms Genitourinary: Reports no symptoms Musculoskeletal: Reports other (Left rib pain) Integumentary: Reports no symptoms Neurological: Reports no symptoms Psychological: Reports no symptoms Endocrine: Reports no symptoms Hematological/Lymphatic: Reports no symptoms Physical Exam Related Data Allergies: Coded Allergies: No Known Allergies (Unverified , 03/10/19) Triage Vital Signs Vital Signs Date Time Temp Pulse Resp B/P (MAP) Pulse Ox O2 Delivery O2 Flow Rate FiO2 10/13/19 12:50 97.8 86 17 149/95 100 Room Air Vital signs reviewed: Yes Physical Exam CONSTITUTIONAL Constitutional: Present well-developed, Present well-nourished HENT HENT: Present normocephalic, Present atraumatic, Present oropharynx clear/moist, Present nose normal HENT L/R: Present left ext ear normal, Present right ext ear normal EYES Eyes: Reports PERRL, Reports conjunctivae normal NECK Neck: Present ROM normal PULMONARY Pulmonary: Present effort normal, Present breath sounds normal CARDIOVASCULAR Cardiovascular: Present regular rhythm, Present heart sounds normal, Present capillary refill normal, Present normal rate GASTROINTESTINAL Abdominal: Present soft, Present nontender, Present bowel sounds normal GENITOURINARY Genitourinary: Present exam deferred SKIN Skin: Present warm, Present dry MUSCULOSKELETAL Musculoskeletal: Present ROM normal, Present tenderness (Left rib pain along ribs 8 and 9. Point tender to ribs. No CVA tenderness) NEUROLOGICAL Neurological: Present alert, Present oriented x 3, Present no gross motor or sensory deficits PSYCHOLOGICAL Psychological: Present mood/affect normal, Present judgement normal Results Imaging Imaging results reviewed: Yes Assessment & Plan Medical Decision Making MDM 49-year-old female with recent fractured eighth rib on the left 1 month ago for continued left upper quadrant pain. Examination shows point tenderness to the rib cage on the left side corresponding to where her pain is. Pain is made worse by certain positions and palpation. No CVA tenderness. No symptoms of urinary tract infection or pyelonephritis. Patient has no diarrhea, constipation or any GI symptoms. CT chest abdomen pelvis shows no acute abnormalities. Diagnosis favors rib pain from recent fall. Doubt emergent process at this time. I discussed results patient as well as expected disease time course and management. They will follow up with their primary care provider or return to the emergency department for new or worsening symptoms. Patient's appropriate for discharge. Part of this note was dictated with Shanika and is subject to recognition errors. Reassessment Reassessment time: 14:29 Reassessment Well appearing, NAD Assessment & Plan Final Impression: (1) Rib tenderness Depart Disposition: HOME, SELF-CARE Last Vital Signs Date Time Temp Pulse Resp B/P (MAP) Pulse Ox O2 Delivery O2 Flow Rate FiO2 10/13/19 12:50 97.8 86 17 149/95 100 Room Air Home Meds Active Scripts Doxycycline Hyclate (DOXYCYCLINE HYCLATE) 100 Mg Capsule, 100 MG PO BID, #12 Prov:NEFTALY RODRIGUEZ NP 03/12/19 Medications in the ED Ketorolac Tromethamine 30 mg ONCE STAT IM Last administered on 10/13/19at 13:32; Admin Dose 30 MG; Start 10/13/19 at 13:13; Stop 10/13/19 at 13:15; Status DC CATARINA GARCES MD Oct 13, 2019 14:27
== END 2019-10-13 16:09 | disposition home or self-care (01) ==
LOC: ER 13:30
DX: R07.81 Pleurodynia (principal); R10.12 Left upper quadrant pain; W19.XXXA Unspecified fall, initial encounter; Y99.0 Civilian activity done for income or pay
CPT/HCPCS: 71250; 74176; 99284; J1885

== ENCOUNTER 2021-12-21 12:44 | Emergency (ER) | payer OTHER ==
[~2021-12-21] VITALS: Ht 157.5 cm; Wt 68.5 kg
[2021-12-21] MEDS ORDERED: IBUPROFEN 600 MG TAB PO STA (13:16)
[2021-12-21] MEDS ORDERED: IBUPROFEN 600 MG TAB ONE (13:41)
[2021-12-21] MEDS ORDERED: IBUPROFEN600 MG PO (14:11)
== END 2021-12-21 14:30 | disposition home or self-care (01) ==
LOC: FSED 12:48
DX: S92.251A Displaced fracture of navicular [scaphoid] of right foot, initial encounter for closed fracture (principal); X50.1XXA Overexertion from prolonged static or awkward postures, initial encounter; Y93.01 Activity, walking, marching and hiking; Y92.89 Other specified places as the place of occurrence of the external cause; J45.909 Unspecified asthma, uncomplicated
CPT/HCPCS: 99284

== ENCOUNTER 2022-01-21 00:04 | Emergency (ER) | payer OTHER ==
[~2022-01-21] VITALS: Ht 157.5 cm; Wt 68.5 kg
[~2022-01-21 00:04] MED LIST changes: +IBUPROFEN600 MG PO
== END 2022-01-21 00:37 | disposition home or self-care (01) ==
LOC: ER 00:10
DX: L84 Corns and callosities (principal); J45.909 Unspecified asthma, uncomplicated
CPT/HCPCS: 99282